=== PATIENT | female | born 1990 | race Two or more races ===

== ENCOUNTER 2022-07-06 09:01 | Outpatient (CLI) | payer OTHER | END 2022-07-06 09:14 | disposition home or self-care (01) | LOC: RX STUDY 09:01 | PROVIDERS: ATTEND Obstetrics & Gynecology | DX: N70.11 Chronic salpingitis (principal) ==

== ENCOUNTER 2024-05-04 10:02 | Inpatient (IN) | payer OTHER ==
[~2024-05-04] VITALS: Ht 152.4 cm; Wt 52.2 kg
[~2024-05-04 10:02] MED LIST: HYOSCYAMINE0.125 M1 SL; PEPCID AC20 MG PO; TRAM1TAB98 PO
[2024-05-04] MEDS ORDERED: 0.9 % SODIUM CHLORIDE 1,000 ML IV STA (11:52)
[2024-05-04 12:57] LABS: HEMATOCRIT 39.5 % (36.0-45.00); HEMOGLOBIN 13.4 g/dL (12.0-15.00); MEAN CORPUSCULAR HEMOGLOBIN 30.3 pg (27.00-32.0); PLATELET COUNT 258 K/uL (150-450); RED BLOOD COUNT 4.43 M/uL (4.00-6.00); RED CELL DISTRIBUTION WIDTH 14.5 % (11.5-14.5)
[2024-05-04 13:49] LABS: BILIRUBIN TOTAL 0.44 mg/dL (0.3-1.2); CALCIUM 9.3 mg/dL (8.5-10.1); CREATININE SERUM 0.64 mg/dL (0.55-1.02); GFR 108.23; GLOBULINA 3.6 G/DL (2.4-3.5); POTASSIUM 4.38 mEq/L (3.5-5.1); TOTAL PROTEIN 7.6 gm/dL (6.4-8.2)
[2024-05-04 13:57] LABS: INR 0.99; PARTIAL THROMBOPLASTIN TIME 32.3 SECONDS (22.0-34.0); PROTHROMBIN TIME 10.4 SECONDS (9.0-11.5)
[2024-05-04] MEDS ORDERED: MAGNESIUM CHLORIDE 70 MG TABLET.DR PO ONE (19:30)
[2024-05-04] MEDS ORDERED: ONDANSETRON HCL 4 MG in 0.9 % SODIUM CHLORIDE 50 ML IV PRN (19:30)
[2024-05-04] MEDS ORDERED: ACETAMINOPHEN 500 MG GEL..CAP PO PRN (19:30)
[2024-05-04] MEDS ORDERED: POLYETHYLENE GLYCOL 3350 17 GM BLIST.PACK PO ONE (19:30)
[2024-05-04] MEDS ORDERED: 0.9 % SODIUM CHLORIDE 1,000 ML IV SCH (19:30)
[2024-05-04 23:58] LABS: INR 1.04; PROTHROMBIN TIME 10.9 SECONDS (9.0-11.5)
[2024-05-05 00:25] LABS: PH,URINE 6.5 (5.0-8.0); URINE APPEARANCE Clear; URINE BACTERIA 275.7 uL (0.0-1933); URINE BILIRRUBIN Negative (NEGATIVE); URINE BLOOD Negative; URINE COLOR Yellow; URINE EPITHELIAL CELLS 16.3 uL (0.0-38.8); URINE GLUCOSE Negative (NEGATIVE); URINE LEUKOCYTE Trace; URINE NITRATE Negative; URINE PROTEIN Negative (NEGATIVE); URINE UROBILINOGEN 0.2 E.U./dl; URINE WBC 26.7 uL (0.0-23.2)
[2024-05-05 00:31] LABS: ob NEGATIVE (NEGATIVE)
[2024-05-05] MEDS ORDERED: FAMOTIDINE/PF 20 MG in 0.9 % SODIUM CHLORIDE 8 ML IV PUSH SCH (09:00)
[2024-05-05] MEDS ORDERED: DIPHENHYDRAMINE HCL 50 MG/ML VIAL 1ML IV NR (11:45)
[2024-05-05] MEDS ORDERED: MIDAZOLAM HCL 2 MG/2 ML VIAL IV ONE (11:45)
[2024-05-05] MEDS ORDERED: fentaNYL CITRATE 50 MCG/ML AMPUL IV PUSH ONE (11:45)
== END 2024-05-05 14:00 | disposition home or self-care (01) | DRG 983 ==
LOC: ER 10:03 → SURG 20:38 → SURH 20:38
PROVIDERS: General Practice; ADMIT Surgery; ATTEND Surgery
PROC: BW21ZZZ Computerized Tomography (CT Scan) of Abdomen and Pelvis (ICD-10-PCS; 2024-05-04)
PROC: 0DB Gastrointestinal System, Excision (ICD-10-PCS; principal; 2024-05-05)
PROC: 0DB77ZX Excision of Stomach, Pylorus, Via Natural or Artificial Opening, Diagnostic (ICD-10-PCS; 2024-05-05)
PROC: 0DJD8ZZ Inspection of Lower Intestinal Tract, Via Natural or Artificial Opening Endoscopic (ICD-10-PCS; 2024-05-05)
DX: K62.5 Hemorrhage of anus and rectum (principal); Z20.822 Contact with and (suspected) exposure to COVID-19